=== PATIENT | male | born 1995 | race African-American/Black ===

== ENCOUNTER 2020-02-25 11:44 | Emergency (ER) | payer OTHER ==
[2020-02-25] MEDS ORDERED: PROV108A INH (11:58)
[2020-02-25] MEDS ORDERED: TETRACAINE 0.5% OPHTH SOLN 4ML OS ONE (12:45)
[2020-02-25] MEDS ORDERED: FLUORESCEIN OPHTH 1 MG STRIP OS ONE (13:00)
--- NOTE | 2020-02-25 13:18 | REPVR ---
PROCEDURE INFORMATION: Exam: CT Orbits Without Contrast Exam date and time: 02/25/2020 12:51 PM Age: 24 years old Clinical indication: Injury or trauma; Injury history: Basketball injury; Initial encounter; Blunt trauma (contusions or hematomas); Orbit/periorbital; Left; Additional info: Hit in eye TECHNIQUE: Imaging protocol: Computed tomography images of the orbits without contrast. Radiation optimization: All CT scans at this facility use at least one of these dose optimization techniques: automated exposure control; mA and/or kV adjustment per patient size (includes targeted exams where dose is matched to clinical indication); or iterative reconstruction. COMPARISON: No relevant prior studies available. FINDINGS: Orbits: No acute intraorbital abnormality. Globes are unremarkable. Sinuses: Normal. No air-fluid levels. Bones/joints: No acute fracture. Soft tissues: Left periorbital soft tissue swelling. IMPRESSION: No acute fracture seen. Electronically signed by: Amalia Mccormick On 02/25/2020 13:18:45 PM
[2020-02-25] MEDS: KETOROLAC TROMETHAMINE 10 MG TAB PO ONE ×2 (13:45→13:47)
[2020-02-25] MEDS ORDERED: KETOROLAC 60MG 2ML VIAL IM ONE (14:00)
[2020-02-25] MEDS ORDERED: OCUF0.25 OS (14:16)
[2020-02-25] MEDS ORDERED: IBUP80TA PO (14:16)
[2020-02-25 14:24] VITALS: BP 117/67
== END 2020-02-25 14:26 | disposition home or self-care (01) ==
LOC: M ED 11:44 → EDBD 11:44 → M ED 14:26
DX: S05.02XA Injury of conjunctiva and corneal abrasion without foreign body, left eye, initial encounter (principal); X58.XXXA Exposure to other specified factors, initial encounter; Y92.149 Unspecified place in prison as the place of occurrence of the external cause; Y93.67 Activity, basketball; Y99.9 Unspecified external cause status; J45.909 Unspecified asthma, uncomplicated; Z72.0 Tobacco use
CPT/HCPCS: 70480; 96372; 99284; J1885